=== PATIENT | female | born 1955 | race Caucasian/White ===

== ENCOUNTER → 2020-04-15 | Outpatient (CLI) | payer MEDICARE ==
[~2020-04-15] MED LIST: ASPIRIN EC81 MG PO; B12 PO; CALCIUM CITRATE+D PO; COLACE 100MG C100 MG PO; CYMBALTA 30 MG30 MG PO; ELIQUIS2.5 MG PO; HAIR SKIN NAIL1 EACH PO; IBUPROFEN800 MG PO; LANTANOPROST EYEBOTH; LODINE CAP 300300 MG PO; METOPROLOL ER PO; NORFLEX 100 MG100 MG PO; PERCOCET 10-321 EACH PO; PERCOCET 5/325 T1 EA PO; PREDNISONE 50 M50 MG PO; PRINIVIL10 MG PO; PROTONIX40 MG PO; SYNTHROID75 MCG PO; TOPROL XL50 MG PO; TRIAMTERENE-HC1 EAC3 PO; VIT C PO; VITAMIN B-121000 MCG PO; [UNRECOGNIZED DRUG - OTHER] TOP
== END ==
LOC: KOH-I 16:29
DX: M25.521 Pain in right elbow (principal); R10.11 Right upper quadrant pain; M25.511 Pain in right shoulder; M19.011 Primary osteoarthritis, right shoulder
CPT/HCPCS: 73030; 73070; 74018

== ENCOUNTER → 2020-07-15 | Outpatient (CLI) | payer MEDICARE | LOC: SLEEP 15:06 | DX: G47.33 Obstructive sleep apnea (adult) (pediatric) (principal); G47.00 Insomnia, unspecified | CPT/HCPCS: 95810 ==